=== PATIENT | male | born 1945 | race Caucasian/White ===

== ENCOUNTER → 2021-01-25 09:35 | Outpatient (BNVA) | payer MEDICARE, OTHER, SELFPAY | PROVIDERS: PCP Internal Medicine; Visit Provider Urology | DX: N43.40 Spermatocele of epididymis, unspecified (principal); C61 Malignant neoplasm of prostate | CPT/HCPCS: 99212 ==

== ENCOUNTER → 2022-01-31 11:15 | Outpatient (BNVA) | payer MEDICARE, OTHER, SELFPAY | PROVIDERS: PCP Internal Medicine; Visit Provider Urology | DX: C61 Malignant neoplasm of prostate (principal); N40.1 Benign prostatic hyperplasia with lower urinary tract symptoms; N13.8 Other obstructive and reflux uropathy | CPT/HCPCS: 99212 ==

== ENCOUNTER → 2023-02-02 11:22 | Outpatient (BNVA) | payer MEDICARE, OTHER, SELFPAY | PROVIDERS: PCP Internal Medicine; Visit Provider Nurse Practitioner Family | DX: C61 Malignant neoplasm of prostate (principal) | CPT/HCPCS: 99212 ==

== ENCOUNTER 2024-02-02 09:18 | Outpatient (AMB) | payer MEDICARE, OTHER, SELFPAY ==
--- NOTE | 2024-02-02 09:26 | MHC.OFFVIS ---
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 He presents to the office today for follow-up of his prostate cancer. He has a past medical history of hypertension, AFib, and spermatocele. In discussion with the patient today he reports to be doing and feeling well. Recent PSA results reviewed with the patient today. PSAs are as follows: PSA 02/06 <0.1, 02/07 <0.1 In office urinalysis results reviewed with the patient today. When asked he denies urinary urgency, urinary frequency, incontinence, nocturia, hematuria, dysuria, foul smelling urine, changes to urinary stream, flank pain, fever, and or chills. He is happy with his current voiding parameters. He discusses his recent travel to [place] for his grandsons [employer] democrat. He also discusses their up coming wedding in [place]. He offers no issues or concerns at this time. Prostate cancer: Brachytherapy 2000 low-grade Reassurance provided Failure would be 2.0 No current testicular pain currently. Prostate cancer was diagnosed 2000. Diagnosis was reached by needle biopsy, for elevated PSA, PSA at diagnosis 5.6. The Austin grade is 3+3 = 6. TNM Classification of Malignant Tumours (TNM) T1c. The D'Aubrie (NCCN) risk category is Low Risk (PSA< 10, Gl < 7, T1c). Initial therapy included Primary treatment, Brachytherapy, Additional treatment, Observation. Recent labs included a PSA (prostate-specific antigen) November 2015 , < 0.1, December 2016 , < 0.1, 01/01 0.1, 07/04 < 0.1, 08/04 0.1, 01/03 < 0.1, 01/05 <0.1, 02/06 <0.1 Associated conditions erectile dysfunction No hematuria No hot flashes No incontinence No osteopenia No pathologic fracture No radiation cystitis No rectal urgency No Therapeutic plan: Continue with surveillance [facility] Medical History Atrial fibrillation HTN (hypertension) Spermatocele Other specified type of hydrocele Prostate cancer Surgical History History of surgery Review of Systems Const All systems reviewed & are unremarkable except as noted in HPI and below Reports no additional complaints Eyes Reports no additional complaints ENT Reports no additional complaints Card Reports as per HPI Resp Reports no additional complaints GI Reports no additional complaints Reports as per HPI Musc Reports no additional complaints Neuro Reports no additional complaints Psych Reports no additional complaints Endo Reports no additional complaints Jonh/Lymph Reports no additional complaints Aller/Immun Reports no additional complaints Physical Exam Const General: cooperative, healthy appearing, comfortable, no acute distress, well developed, alert and awake Orientation/consciousness: patient oriented x3 Limitations: no limitations HEENT Head: Yes normal to inspection, Yes normocephalic and Yes atraumatic Ears: hearing grossly normal bilaterally Eyes General: appearance normal, both eyes and all related structures Neck Neck: Yes normal visual inspection and Yes trachea midline Chest Chest palpation & inspection: normal inspection of the chest Resp Effort & Inspection: normal respiratory effort and able to speak in complete sentences Cardio Rate: regular rate GI Inspection: Yes normal to inspection General: Yes no CVA tenderness Back/Spine/Pelvis Back: no CVA tenderness Skin General skin exam: no rashes or lesions noted Neuro General: patient oriented x3 Extrem General: Yes normal to inspection Psych Appearance: grossly normal and well kempt Mental Status: mental status grossly normal Speech and movement: Normal speech and movement present and Clear speech present Affect: normal affect Attitude: cooperative Thought process: Normal thought process present Thought content: Normal thought content present Insight: Good insight present (Psych) Judgement: Good judgement present (Psych) Results AMB Urinalysis, Automated UA Leukoctes 0 Jeniffer/uL Last Edit by Ranjana Ramsey on 02/02/24 09:40 UA Nitrite Negative Last Edit by Ranjana Ramsey on 02/02/24 09:40 UA Urobilinogen 0.2 mg/dL Last Edit by Ranjana Ramsey on 02/02/24 09:40 UA Protein 15 mg/dL Last Edit by Ranjana Ramsey on 02/02/24 09:40 UA pH 5.5 Last Edit by Ranjana Ramsey on 02/02/24 09:40 UA Blood 0 Santino/uL Last Edit by Ranjana Ramsey on 02/02/24 09:40 UA Specific [place] 1.025 Last Edit by Ranjana Ramsey on 02/02/24 09:40 UA Ketone Negative Last Edit by Ranjana Ramsey on 02/02/24 09:40 UA Bilirubin 0 mg/dL Last Edit by Ranjana Ramsey on 02/02/24 09:40 UA Glucose 0 mg/dL Last Edit by Ranjana Ramsey on 02/02/24 09:40 Results Reviewed Results Reviewed: Laboratory Last Values Urine pH (Auto) 5.5 02/02/24 09:31 Specific [place] (Auto) 1.025 02/02/24 09:31 Urine Protein (Auto) 15 mg/dL 02/02/24 09:31 Glucose (UA)(Auto) 0 mg/dL 02/02/24 09:31 Urine Ketones (Auto) Negative 02/02/24 09:31 Urine Blood (Auto) 0 Santino/uL 02/02/24 09:31 Urine Nitrite (Auto) Negative 02/02/24 09:31 Urine Bilirubin (Auto) 0 mg/dL 02/02/24 09:31 Urine Urobilinogen (Auto) 0.2 mg/dL 02/02/24 09:31 Leukocyte Esterase (Auto) 0 Jeniffer/uL 02/02/24 09:31 Assessment & Plan Assessment & Plan (1) Prostate cancer: Code(s): C61 - Malignant neoplasm of prostate Category: Medical Plan In office urinalysis results reviewed with the patient today; as noted above Recent PSA results reviewed with the patient today; as noted above. Patient denies any urological issues or concerns at this time. PSA in 1 year Follow-up in 1 year with lab to be completed prior; or sooner with any issues, concerns, and or questions. Orders: Orders Prostate Specific Antigen Today C61 - Malignant neoplasm of prostate AMB Urinalysis Automated Today Z13.9 - Encounter for screening, unspecified Patient Instructions: The patient had an opportunity to ask questions regarding the treatment plan. All questions were answered. Physical exam, labs, and imaging were discussed and reviewed in detail. As well as risks, benefits, and discussion of treatment choices. No major barriers to understanding were identified. The patient expressed understanding and agreement with the above treatment plan. The patient was made aware they should contact our office by phone for worsening of their current condition, the appearance of new symptoms, or with any questions or concerns. Compliance is encouraged with any medications and follow up testing that is ordered. It is a privilege to be allowed the opportunity to participate in? your urological care.? Again, if you have any questions or concerns If you have any questions or concerns please do not hesitate to contact me. The office is [phone]. This note is constructed using voice recognition software. While every effort has been made to ensure accuracy chemical dependency nurse errors may have been included. Yours sincerely, NADYA Bermeo Coding Level of Care Code Est Pt Level 3 (77368) Diagnoses Prostate cancer C61
== END 2024-02-02 10:03 | disposition home or self-care (01) ==
PROVIDERS: PCP Internal Medicine; Visit Provider Nurse Practitioner Family
DX: C61 Malignant neoplasm of prostate (principal); Z13.9 Encounter for screening, unspecified
CPT/HCPCS: 99213

== ENCOUNTER → 2024-02-02 09:18 | Outpatient (BNVA) | payer MEDICARE, OTHER, SELFPAY | PROVIDERS: PCP Internal Medicine; Visit Provider Nurse Practitioner Family | DX: C61 Malignant neoplasm of prostate (principal) | CPT/HCPCS: 81003; 99212 ==

== ENCOUNTER 2025-02-01 09:28 | Outpatient (AMB) | payer MEDICARE, OTHER, SELFPAY ==
--- NOTE | 2025-02-01 09:27 | MHC.OFFVIS ---
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 He presents to the office today for follow-up of his prostate cancer. He has a past medical history of hypertension, AFib, and spermatocele. In discussion with the patient today he reports to be doing and feeling well. Recent PSA results reviewed with the patient today. PSAs are as follows: PSA 02/06 <0.1, 02/07 <0.1, 02/08 ,<0.1 In office urinalysis results reviewed with the patient today. When asked he denies urinary urgency, urinary frequency, incontinence, hematuria, dysuria, foul smelling urine, changes to urinary stream, flank pain, fever, and or chills. He does report episodes of nocturia however feels they are manageable. Typically he experiences nocturia 2 times per night. He is happy with his current voiding parameters. He offers no issues or concerns at this time. Prostate cancer: Brachytherapy 2000 low-grade Reassurance provided Failure would be 2.0 No current testicular pain currently. Prostate cancer was diagnosed 2000. Diagnosis was reached by needle biopsy, for elevated PSA, PSA at diagnosis 5.6. The Austin grade is 3+3 = 6. TNM Classification of Malignant Tumours (TNM) T1c. The D'Aubrie (NCCN) risk category is Low Risk (PSA< 10, Gl < 7, T1c). Initial therapy included Primary treatment, Brachytherapy, Additional treatment, Observation. Recent labs included a PSA (prostate-specific antigen) November 2015 , < 0.1, December 2016 , < 0.1, 01/01 0.1, 07/04 < 0.1, 08/04 0.1, 01/03 < 0.1, 01/05 <0.1, 02/06 <0.1 Associated conditions erectile dysfunction No hematuria No hot flashes No incontinence No osteopenia No pathologic fracture No radiation cystitis No rectal urgency No Therapeutic plan: Continue with surveillance [facility] Medical History Atrial fibrillation HTN (hypertension) Spermatocele Other specified type of hydrocele Prostate cancer Surgical History History of surgery Review of Systems Const All systems reviewed & are unremarkable except as noted in HPI and below Reports no additional complaints Eyes Reports no additional complaints ENT Reports no additional complaints Card Reports as per HPI Resp Reports no additional complaints GI Reports no additional complaints Reports as per HPI Musc Reports no additional complaints Neuro Reports no additional complaints Psych Reports no additional complaints Endo Reports no additional complaints Jonh/Lymph Reports no additional complaints Aller/Immun Reports no additional complaints Physical Exam Const General: cooperative, healthy appearing, comfortable, no acute distress, well developed, alert and awake Orientation/consciousness: patient oriented x3 Limitations: no limitations HEENT Head: Yes normal to inspection, Yes normocephalic and Yes atraumatic Ears: hearing grossly normal bilaterally Eyes General: appearance normal, both eyes and all related structures Neck Neck: Yes normal visual inspection and Yes trachea midline Chest Chest palpation & inspection: normal inspection of the chest Resp Effort & Inspection: normal respiratory effort and able to speak in complete sentences Cardio Rate: regular rate GI Inspection: Yes normal to inspection General: Yes no CVA tenderness Back/Spine/Pelvis Back: no CVA tenderness Skin General skin exam: no rashes or lesions noted Neuro General: patient oriented x3 Extrem General: Yes normal to inspection Psych Appearance: grossly normal and well kempt Mental Status: mental status grossly normal Speech and movement: Normal speech and movement present and Clear speech present Affect: normal affect Attitude: cooperative Thought process: Normal thought process present Thought content: Normal thought content present Insight: Good insight present (Psych) Judgement: Good judgement present (Psych) Results AMB Urinalysis, Automated UA Leukoctes 0 Jeniffer/uL Last Edit by Christen Bansal MA on 02/01/25 09:37 UA Nitrite Negative Last Edit by Christen Bansal MA on 02/01/25 09:37 UA Urobilinogen 0.2 mg/dL Last Edit by Christen Bansal MA on 02/01/25 09:37 UA Protein 15 mg/dL Last Edit by Christen Bansal MA on 02/01/25 09:37 UA pH 6.0 Last Edit by Christen RolfERICA on 02/01/25 09:37 UA Blood 0 Santino/uL Last Edit by Christen BansalERICA on 02/01/25 09:37 UA Specific [place] 1.025 Last Edit by Christen BansalERICA on 02/01/25 09:37 UA Ketone Negative Last Edit by Christen BansalERICA on 02/01/25 09:37 UA Bilirubin 0 mg/dL Last Edit by Christen RolfERICA on 02/01/25 09:37 UA Glucose 0 mg/dL Last Edit by Christen BansalERICA on 02/01/25 09:37 Results Reviewed Results Reviewed: Laboratory Last Values Urine pH (Auto) 6.0 02/01/25 09:32 Specific [place] (Auto) 1.025 02/01/25 09:32 Urine Protein (Auto) 15 mg/dL 02/01/25 09:32 Glucose (UA)(Auto) 0 mg/dL 02/01/25 09:32 Urine Ketones (Auto) Negative 02/01/25 09:32 Urine Blood (Auto) 0 Santino/uL 02/01/25 09:32 Urine Nitrite (Auto) Negative 02/01/25 09:32 Urine Bilirubin (Auto) 0 mg/dL 02/01/25 09:32 Urine Urobilinogen (Auto) 0.2 mg/dL 02/01/25 09:32 Leukocyte Esterase (Auto) 0 Jeniffer/uL 02/01/25 09:32 Assessment & Plan Assessment & Plan (1) Prostate cancer: Code(s): C61 - Malignant neoplasm of prostate Category: Medical Plan In office urinalysis results reviewed with the patient today; as noted above Recent PSA results reviewed with the patient today; as noted above. Patient denies any urological issues or concerns at this time. He is happy with his current voiding parameters. PSA in 1 year Follow-up in 1 year with lab to be completed prior; or sooner with any issues, concerns, and or questions. Orders: Orders AMB Urinalysis Automated Today Z13.9 - Encounter for screening, unspecified Prostate Specific Antigen 1 Year C61 - Malignant neoplasm of prostate Patient Instructions: The patient had an opportunity to ask questions regarding the treatment plan. All questions were answered. Physical exam, labs, and imaging were discussed and reviewed in detail. As well as risks, benefits, and discussion of treatment choices. No major barriers to understanding were identified. The patient expressed understanding and agreement with the above treatment plan. The patient was made aware they should contact our office by phone for worsening of their current condition, the appearance of new symptoms, or with any questions or concerns. Compliance is encouraged with any medications and follow up testing that is ordered. It is a privilege to be allowed the opportunity to participate in? your urological care.? Again, if you have any questions or concerns If you have any questions or concerns please do not hesitate to contact me. The office is [phone]. This note is constructed using voice recognition software. While every effort has been made to ensure accuracy oracle e business developer errors may have been included. Yours sincerely, NADYA Bermeo Coding Level of Care Code Est Pt Level 3 (84711) Complex EM visit Add On G2211 Diagnoses Prostate cancer C61
--- OUTSIDE RECORDS SUMMARY | 2025-02-01 10:25 | XMS_ITS | Data Portability ---
Author Organization [facility], [facility] Address [address] [place] [address] Care Team Providers Care Licensed Insurance Sales Agent Name Role Phone [facility]UTCH HIDALGO Primary Care Provider Assessment No assessment recorded. Plan of Treatment Reminders Order Date Submit Date Provider Last Modified By Organization Details Last Modified Time Details Appointments None record ed. Lab None record ed. Referral None record ed. Procedures None record ed. Surgeries None record ed. Imaging None record ed. Medication Orders None record ed. Patient TargetsNo targets recorded. Patient InstructionsNo instructions recorded. Reason for Referral None Reported. Problems Name Problem SNOMED Code Status Onset Date Resolution Date Notes Provider Name and Address Organization Details Recorded Time Injury of thigh 3095406 Active 025 Iraj Russell PA-C [address] [facility], [place], [address] , [facility] 01/24/2025 08:46:08 Problem Notes None recorded. Procedures Surgical History Date Name Laterality Status Provider Name and Address Organization Details Recorded Time 5 Trigger Thumb Kenalog Injection completed Sean Almeida MD [address], [place], [address], [facility] 10/12/2024 13:05:35 5 JZTrigger Finger Injection completed Stephenie Flores PA-C [address], [place], [address], [facility] 08/29/2024 10:56:33 Imaging Results None recorded. Procedure Notes None recorded. Medical Equipment None Reported. Allergies No known drug allergies Medications Name Sig Start Date Stop Date Status Note LastModified by Organization Details LastModified Time doxycycline hyclate 100 mg capsule TAKE 1 CAPSULE BY MOUTH TWICE A DAY WITH MEALS 10/11 completed Not Available Not Available Not Available Lidocaine Viscous 2 % mucosal solution active Not Available Not Available Not Available enalapril maleate 20 mg tablet TAKE 1 TABLET BY MOUTH EVERY DAY active Not Available Not Available No t Available penicillin V potassium 500 mg tablet TAKE 1 TABLET BY MOUTH EVERY SIX HOURS DIRECTED UNTIL EMPTY active Not Available Not Available No t Available amlodipine 2.5 mg tablet TAKE 1 TABLET BY MOUTH EVERYDAY AT BEDTIME 10/11 completed Not Available Not Available Not Available amlodipine 5 mg tablet TAKE 1 TABLET BY MOUTH EVERYDAY AT BEDTIME active Not Available Not Available No t Available flecainide 100 mg tablet TAKE 1 TABLET BY MOUTH EVERY 12 HOURS NEEDED FOR ARRYTHMIA active Not Available Not Available No t Available metoprolol tartrate 25 mg tablet TAKE 1 TABLET BY MOUTH 2 TIMES A DAY NEEDED FOR SYMPTOMS OF AFIB active Not Available Not Available No t Available oxycodone HCl-oxycodo ne-ASA 1Q 4-[address] WHILE ON THIS MEDICATIO N 10/20 completed Statu s: 'Disc ontin ued'; Not Available Not Available Not Available Eliquis 5 mg tablet TAKE 1 TABLET BY MOUTH TWICE A DAY active Not Available Not Available No t Available Vitals Date Recorded Body height Body mass index (BMI) Body weight Provider Name and Address Organization Details Last Updated DateTime 08/29/2024 172.72 cm 25.1 kg/m2 77748.74 g KAREEN CARLIN [facility] 08/29/2024 10:16:48 Date Recorded Body height Body mass index (BMI) Body weight Provider Name and Address Organization Details Last Updated DateTime 10/12/2024 172.72 cm 25.1 kg/m2 35069.74 g DAVIS CLIFFORD [facility] 10/12/2024 09:06:51 Date Recorded Body height Body mass index (BMI) Body weight Provider Name and Address Organization Details Last Updated DateTime 01/24/2025 172.72 cm 25.1 kg/m2 26872.74 g Thiago Caal [facility] 01/24/2025 08:26:59 Social History None recorded. Functional Status None recorded. Mental Status None recorded. Family History Nothing Reported. Medical History No medical history recorded. Past Encounters Encounter ID Performer Location Encounter Start Date Encounter Closed Date Diagnosis/Indication Diagnosis SNOMED-CT Code Diagnosis ICD10 Code Diagnosis Note [id number] [facility] [address] [place] [address] 08/29/2024 10:03:33 09/19/2024 12:45:29 [id number] MD MARLENE Solomon [address] [place] [address] 10/12/2024 08:52:59 10/28/2024 09:11:26 Trigger thumb of right hand [id number] 24602 M65.095 [id number] [facility] [place] [address] [place] [place] [address] 01/24/2025 08:20:07 01/24/2025 08:46:34 Injury of thigh 6455097 S76.311A Health Concerns Section Related Observation LastModified by Organization Detai ls LastModified Time None Recorded Concern Status LastModified by Organization Details LastModified Time None Recorded Advance Directives Directive None Recorded Payers Insurance Date Sequence Insurance Name Policy Number Policy Whaley Covered Member ID Whaley Member ID Guarantor Name 01/24/2025 2 [facility] [employer] - [facility] [id number] [address] [facility] [id number] Mike Barnhart 01/24/2025 1 [place]: [facility] [employer] Mike Barnhart [id number] Mike Barnhart Notes Date Note Type Note Provider Name and Address Organization Details Recorded Time 08/29/2024 text/html I am seeing the patient today under the supervision of Dr. Almeida who was available but who did not see the patient. DX:. 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 Previous injection to the right thumb was helpful. The patient reports pain to the right thumb for the past few weeks. The patient wakes up in the morning with his IP joint in a flexed posture, and has to manually extend the finger. The patient has pain with grasp, no numbness or tingling. Past family, medical, social history and review of systems has been reviewed, updated and signed by me and is located in the patient s chart. Examination: Alert and oriented 3. No acute distress. Nonantalgic gait . Right thumb finger reveals no soft tissue swelling, erythema, or ecchymosis. Tender nodule over the A1 rafi region, + audible click . Sensation is intact, 1+ capillary refill, 2+ radial pulse. Examination of the left hand shows no warmth, erythema, swelling, or effusion. Full ROM, 5/5 strength all muscle groups and no evidence of instability. Impression/Plan: Findings and situation discussed with patient. Recommended cortisone injection. Under aseptic technique, 40 mg of Kenalog-40 injected into the A1 rafi region of the right thumb finger. The patient tolerated the procedure well. Postinjection precautions were discussed. Will follow up in six weeks if no improvement. Stephenie Flores PA-C [address] [facility] [address], [place], [address], [facility] 08/29/2024 10:56:45 10/12/2024 text/html Diagnosis: Flexo r tenosynovitis right thumb status post 2 injections The patient returns at his request. He saw some improvement with his last injection but continues to trigger and feels like this is slowly worsening. Past family, medical, social history and review of systems has been reviewed, updated and is located in the patient s chart. Examination: Healthy appearing patient in no apparent distress. Alert and oriented. He has symmetric range of motion of his bilateral wrist and digits. He has triggering of the right thumb with a tender nodule at the A1 rafi. Provocative testing of both thumbs reveals no instability. No atrophy in either upper extremity. Brisk capillary refill in all digits Plan: The patient and I discussed his situation at length. I recommended surgery in the form of a flexor tenosynovectomy. I reviewed with him the nature of the surgery and its potential risks including infection, injury to blood vessels, tendons, nerves, incomplete relief of his triggering and stiffness of his thumb. All his questions were answered. He would prefer to try a third and final injection. If this is not successful he would strongly consider surgical intervention. He tolerated the injection well. He will follow-up at his discretion. Sean Almeida MD [address], [place], [address], [facility] 10/12/2024 13:06:07 01/24/2025 text/html I am seeing the patient today under the supervision of Dr. Garcia who was available but who did not see the patient. HPI: This patient is a 79-year-old male who presents to urgent care clinic today for initial orthopedic evaluation of a new injury to his right thigh. Yesterday he suffered what he felt to be a tear in the posterior aspect of his right hamstring. He reports that he was lifting a heavy umbrella base. After injury he had difficulty sitting as well as walking or stretching of the leg. He has used a sleeve as well as ice and Tylenol. Patient reports symptoms mostly in the midportion of the thigh. Past family, medical, social history and review of systems has been reviewed, updated and signed by me and is located in the patient's chart. Generally healthy. Status post Achilles tendon repair left lower leg by Dr. Starr Examination: Patient has some soft tissue swelling in the midportion of right hamstring. Tenderness to palpation in this area. Some ecchymosis distal to the area of tenderness and swelling in the popliteal space consistent with strain of the hamstring. Intact strength and stability of the knee. No tenderness at the ischial tuberosity. Radiographs deferred today. Impression: Rupture right hamstring Plan: Patient has a strain of the hamstring on the right side. Self-limiting problem as this is a midportion muscle strain. No evidence for tendon tear or rupture. Recommendation is conservative management with continued use of compression sleeve, ice, rest, avoidance evaluating activities as well as use of Tylenol and Aleve. Patient reassured. Do's and don'ts were discussed. Recheck as needed Iraj Russell PA-C [address], [place], [address], [facility] 01/24/2025 08:46:32
== END 2025-02-01 10:12 | disposition home or self-care (01) ==
LOC: HO.HUSH 09:29
PROVIDERS: PCP Internal Medicine; Visit Provider Nurse Practitioner Family
DX: Z13.9 Encounter for screening, unspecified (principal); C61 Malignant neoplasm of prostate
CPT/HCPCS: 99213; G2211

== ENCOUNTER → 2025-02-01 09:28 | Outpatient (BNVA) | payer MEDICARE, OTHER, SELFPAY | PROVIDERS: PCP Internal Medicine; Visit Provider Nurse Practitioner Family | DX: C61 Malignant neoplasm of prostate (principal) | CPT/HCPCS: 81003; 99212 ==